=== PATIENT | female | born 1940 | race Caucasian/White ===

== ENCOUNTER → 2023-11-06 08:29 | Outpatient (REF) | payer MEDICARE, SELFPAY ==
[2023-11-06 09:44] LABS: % Basophils 0.4 % (0-2); % Eosinophils 1.5 % (0-6); % Immature Granulocytes 0.3 % (0-0.5); % Lymphocytes 37.1 % (20.5-51.1); % Monocytes 9.1 % (1.7-9.3); % Neutrophils 51.6 % (42.2-75.2); Absolute Eosinophils 0.1 10^3/uL (0-0.7); Absolute Lymphocytes 2.5 10^3/uL (1.2-3.4); Absolute Monocytes 0.6 10^3/uL (0.1-0.6); Absolute Neutrophils 3.5 10^3/uL (1.4-6.5); Hematocrit 40.6 % (37.0-47.0); Hemoglobin 13.9 g/dL (12.0-16.0); Mean Corp Hgb Conc. 34.2 g/dL (33.0-37.0); Mean Corpuscular Hgb 30.4 pg (27.0-31.0); Mean Corpuscular Volume 88.8 fL (81.0-99.0); Nucleated Red Blood Cells % 0 %; Platelet Count 321 10^3/uL (130-400); Red Blood Cell Count 4.57 10^6/uL (4.20-5.40); Red Cell Dist. Width 13.9 % (11.5-14.5); White Blood Cell Count 6.7 10^3/uL (4.8-10.8)
[2023-11-06 09:49] LABS: Urine Albumin Negative (Neg - Trace); Urine Bilirubin Negative (Negative); Urine Character Clear (Clear); Urine Color Yellow; Urine Glucose Negative (Negative); Urine Ketone Negative (Negative); Urine Leukocyte Negative (Negative); Urine Nitrite Negative (Negative); Urine Occult Blood Negative (Negative); Urine Urobilinogen Negative (Neg - 1+)
[2023-11-06 10:46] LABS: ALT (SGPT) 27 U/L (0-35); AST (SGOT) 41 U/L (14-36); Albumin 4.7 g/dl (3.5-5.0); Alkaline Phosphatase 75 U/L (38-126); Blood Urea Nitrogen 22 mg/dl (7-17); Calcium 10.1 mg/dl (8.4-10.2); Carbon Dioxide 27 mmol/L (22-30); Chloride 104 mmol/L (98-107); Glucose 102 mg/dl (70-99); HDL Cholesterol 86 mg/dl; LDL Cholesterol, Calculated 35 mg/dl; Potassium 4.6 mmol/L (3.5-5.1); Sodium 137 mmol/L (135-145); Total Cholesterol 140 mg/dl (50-199); Total Protein 7.5 g/dl (6.3-8.2); Triglyceride 98 mg/dl (10-149); Very Low Density Lipoprotein 19 mg/dl (0-30); Vitamin D, 25-OH*** 85.5 ng/mL (30-80); eGFR > 60.00
[2023-11-06 11:00] LABS: TSH Reflex To Free T4 0.79 uIU/ml (0.47-4.68)
== END ==
LOC: REG 08:29
PROVIDERS: ATTENDING PHYSICIAN Internal Medicine
DX: I25.10 Atherosclerotic heart disease of native coronary artery without angina pectoris (principal); Z95.5 Presence of coronary angioplasty implant and graft; E78.2 Mixed hyperlipidemia; E03.9 Hypothyroidism, unspecified; I34.0 Nonrheumatic mitral (valve) insufficiency; Q21.0 Ventricular septal defect; E05.30 Thyrotoxicosis from ectopic thyroid tissue without thyrotoxic crisis or storm; Z00.00 Encounter for general adult medical examination without abnormal findings; M81.0 Age-related osteoporosis without current pathological fracture
CPT/HCPCS: 36415; 80053; 80061; 81003; 82306; 84443; 85025

== ENCOUNTER 2023-11-28 12:27 | Emergency (ER) | payer OTHER, SELFPAY ==
[2023-11-28 12:35] VITALS: BP 162/75
[2023-11-28 14:37] VITALS: BP 154/69
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
[2023-11-28] MEDS: TYLENOL 650 MG PO (16:45)
[2023-11-28 16:46] VITALS: BP 151/74
[2023-11-28 17:00] VITALS: BP 151/74
== END 2023-11-28 17:01 | disposition home or self-care (01) ==
LOC: EMR 12:27
PROVIDERS: EMERGENCY PHYSICIAN Emergency Medicine; FAMILY PHYSICIAN Internal Medicine
DX: M54.2 Cervicalgia (principal); V89.2XXA Person injured in unspecified motor-vehicle accident, traffic, initial encounter; R03.0 Elevated blood-pressure reading, without diagnosis of hypertension
CPT/HCPCS: 99284; 70450; 72125

== ENCOUNTER → 2023-12-23 09:14 | Outpatient (REF) | payer OTHER, SELFPAY ==
[2023-12-23 12:27] LABS: ALT (SGPT) 26 U/L (0-35); AST (SGOT) 41 U/L (14-36)
== END ==
LOC: REG 09:14
PROVIDERS: ATTENDING PHYSICIAN Internal Medicine
DX: K76.89 Other specified diseases of liver (principal)
CPT/HCPCS: 36415; 84450; 84460

== ENCOUNTER → 2024-01-14 07:42 | Outpatient (REF) | payer MEDICARE, SELFPAY | LOC: RAD 07:42 | PROVIDERS: ATTENDING PHYSICIAN Internal Medicine; REFERRING PHYSICIAN Internal Medicine Cardiovascular Disease | DX: R79.89 Other specified abnormal findings of blood chemistry (principal) | CPT/HCPCS: 76700 ==

== ENCOUNTER → 2024-03-10 08:23 | Outpatient (REF) | payer MEDICARE, SELFPAY | LOC: RAD 08:23 | PROVIDERS: ATTENDING PHYSICIAN Internal Medicine | DX: M54.50 Low back pain, unspecified (principal); R29.898 Other symptoms and signs involving the musculoskeletal system | CPT/HCPCS: 72110; 73502 ==

== ENCOUNTER → 2024-05-18 08:21 | Outpatient (REF) | payer MEDICARE, SELFPAY ==
[2024-05-18 10:46] LABS: ALT (SGPT) 28 U/L (0-35); AST (SGOT) 41 U/L (14-36); Albumin 4.6 g/dl (3.5-5.0); Alkaline Phosphatase 50 U/L (38-126); Direct Bilirubin 0.1 mg/dl (0.0-0.4); Total Bilirubin 0.8 mg/dl (0.2-1.3); Total Protein 7.1 g/dl (6.3-8.2)
== END ==
LOC: RAD 08:21
PROVIDERS: ATTENDING PHYSICIAN Internal Medicine
DX: R79.89 Other specified abnormal findings of blood chemistry (principal); K76.0 Fatty (change of) liver, not elsewhere classified
CPT/HCPCS: 36415; 76700; 80076

== ENCOUNTER → 2024-08-27 08:54 | Outpatient (REF) | payer MEDICARE, SELFPAY | LOC: RCS 08:54 | PROVIDERS: ATTENDING PHYSICIAN Internal Medicine Cardiovascular Disease; FAMILY PHYSICIAN Internal Medicine | DX: Q21.0 Ventricular septal defect (principal); R07.89 Other chest pain | CPT/HCPCS: 93306 ==

== ENCOUNTER 2024-09-14 06:57 | Emergency (ER) | payer MEDICARE, SELFPAY ==
[2024-09-14 07:04] VITALS: BP 136/66
--- NOTE | 2024-09-14 07:14 | ED.GENMED ---
History of Present Illness
General
Chief Complaint: Chest Pain
Time Seen by Provider: 09/14/24 07:14
History of Present Illness
History of Present Illness:
TIME OF INITIAL ENCOUNTER: 7:15 AM
HPI: H/o coronary stent 2019 ([place]). Metoprolol stopped recently due to vertigo. Known to Soni. At around 1:30 AM today, she developed chest tightness. She has had chest tightness in the past. The chest tightness is usually described along
with a pinching sensation and happens only at nighttime. She has no exertional symptoms. Today, she passed out while going to the bathroom (felt worse while voiding). Chest tightness ongoing for several months (reports normal echo, EKG, Holter).
She states that she feels well-hydrated and drinks several bottles of water daily.
EXAM:
GENERAL: Well appearing in no distress
HEENT: Moist oral mucosa
CARDIOVASCULAR: No murmurs, normal heart rate, regular rhythm, No chest wall tenderness
PULMONARY: No respiratory distress, breath sounds are clear and equal
ABDOMEN: Soft with no peritoneal signs, no tenderness
NEUROLOGIC: Excellent strength all extremities, no coordination deficits
PSYCHIATRIC: Appropriate mental status, normal insight and judgement
EXTREMITIES: Nontender, no edema, moves all extremities equally, excellent active range of motion at the left knee
SKIN: Abrasion and ecchymosis noted to the anterior aspect of the left knee
NUMBER AND COMPLEXITY OF PROBLEMS ADDRESSED AT THE ENCOUNTER
� Chronic conditions affecting care: CAD, high blood pressure, hyperlipidemia
� Acute Exacerbation and/or Progression of Chronic Illness: This is an acute but recurring problem
� Differential Diagnosis includes: Micturition syncope, dehydration, ACS less likely
AMOUNT AND/OR COMPLEXITY OF DATA TO BE REVIEWED AND ANALYZED
� I performed an independent evaluation of and my interpretation is:
EKG: Sinus 67, normal axis, no acute ST abnormality so very
CT:
X-rays:
Laboratory Studies: CBC normal, chemistries unremarkable, troponin less than 0.012
Other:
� Review of other/old records: Echo from 08/27/2024 showed EF of 65 to 70% with no regional wall motion abnormalities, moderate to severe tricuspid regurg, small perimembranous VSD
� Clinical information was obtained by an independent historian: I spoke to daughter at bedside
� Prescriptions/Medications Considered but not given:
� Further testing considered but not performed:
RISK OF COMPLICATIONS AND/OR MORBIDITY OR MORTALITY OF PATIENT MANAGEMENT
� Social determinants of health affecting care: Lives at home
� Discussion with other providers:
� Escalation of care including admission/observation vs risk of discharge considered: The patient had an event earlier today consistent with micturition syncope. She states she feels well-hydrated. EKG is normal. She had a
pinching chest tightness at 1:30 AM today. The chest tightness has been ongoing for months and was evaluated by Dr. Soni. She also has an upcoming appointment in about a week with Dr. Soni again.
ANY OTHER UPDATES:
8:55 AM: Repeat EKG obtained sinus 55, normal axis, no acute ST abnormality�obtained because she does have some additional chest discomfort in the emergency department. The patient has had some intermittent chest discomfort but this is also ongoing
for months. Recommend close follow-up with Dr. Soni.
Phy Exam
Physical Exam
Physical Exam:
See HPI
Scores
Heart Score for Chest Pain Patients
STEMI patient?: Not applicable
Course
Orders/Labs/Results
Orders:
Orders
09/14/24 06:58
Electrocardiogram (*1) Urgent
Reason for Study: Chest Pain
EKG- Treatment ONCE
09/14/24 07:58
Complete Blood Count/With Diff Urgent
Comprehensive Metabolic Panel Urgent
Free T4 Urgent
TSH Reflex To Free T4 Urgent
Comment: ADD ON
Troponin I Urgent
09/14/24 08:04
Add On- LAB Urgent
Tests Added?: tsh reflex fT4
09/14/24 08:43
ECG [Electrocardiogram (*1)] Urgent
Reason for Study: Chest Pain
EKG- Treatment ONCE
09/14/24 10:34
Troponin I Urgent
Abnormal Lab Results
09/14/24
07:58
Absolute Monos (auto) 0.8 H 10^3/uL
(0.1-0.6)
Glucose 120 H mg/dl
(70-99)
AST 42 H U/L
(14-36)
TSH (Reflex) 0.37 L uIU/ml
(0.47-4.68)
09/14/24 07:58
09/14/24 07:58
Vital Signs
Initial and Last Documented VS:
Initial Vital Signs
Temp Pulse Resp BP Pulse Ox
36.5 C 57 16 136/66 100
09/14/24 07:04 09/14/24 07:04 09/14/24 07:04 09/14/24 07:04 09/14/24 07:04
Last Documented Vital Signs
Temp Pulse Resp BP Pulse Ox
36.5 C 63 18 138/93 96
09/14/24 07:04 09/14/24 10:45 09/14/24 10:45 09/14/24 10:41 09/14/24 10:45
*Critical Care Note
Total Time (30-74mins, 75-104mins- exclusive of procedures): Not Applicable
ED Attending Note
-
Portions of this chart may have been created with voice recognition software.� Occasional wrong word or��sound alike� substitutions may have occurred due to the inherent limitations of voice recognition software.
Discharge Plan
Departure
Patient Disposition: Home (Routine Discharge)
Date of Disposition: 09/14/24
Time of Disposition: 11:24
Patient with high blood pressure during this ER visit?: Yes
Discharge Problem:
Chest pain
Instructions: Chest Pain CBC Follow Up, BLOOD PRESSURE
Referrals:
Domenico Dimas MD [Family Provider] -
Activity Restrictions/Additional Instructions:
2 cardiac blood test called troponins have both been negative. EKG is unremarkable. Basic blood work including thyroid testing is unremarkable. Follow-up with Dr. Soni's group.
Interventions
Interventions:
*Risk Screen - Suicide Last Done: 09/14/24 07:04
*Neglect/Abuse Screening Last Done: 09/14/24 07:04
ED- Fall Risk Assessment Last Done: 09/14/24 08:16
*Nursing Disposition Last Done: 09/14/24 11:49
ED- Cardiac Assessment Last Done: 09/14/24 08:16
Discharge Date and Time
Print Language: SYRIAN
[2024-09-14 07:43] VITALS: BP 149/71
[2024-09-14 08:00] VITALS: BP 149/75
[2024-09-14 08:04] LABS: % Basophils 0.2 % (0-2); % Eosinophils 0.8 % (0-6); % Immature Granulocytes 0.2 % (0-0.5); % Lymphocytes 24.3 % (20.5-51.1); % Neutrophils 65.5 % (42.2-75.2); Absolute Eosinophils 0.1 10^3/uL (0-0.7); Absolute Monocytes 0.8 10^3/uL (0.1-0.6); Absolute Neutrophils 5.5 10^3/uL (1.4-6.5); Hematocrit 38.7 % (37.0-47.0); Hemoglobin 13.2 g/dL (12.0-16.0); Mean Corp Hgb Conc. 34.1 g/dL (33.0-37.0); Mean Corpuscular Hgb 30.1 pg (27.0-31.0); Mean Corpuscular Volume 88.2 fL (81.0-99.0); Mean Platelet Volume 9.2 fL (7.4-10.4); Nucleated Red Blood Cells % 0 %; Platelet Count 336 10^3/uL (130-400); Red Blood Cell Count 4.39 10^6/uL (4.20-5.40); Red Cell Dist. Width 13.5 % (11.5-14.5); White Blood Cell Count 8.4 10^3/uL (4.8-10.8)
[2024-09-14 08:28] LABS: ALT (SGPT) 34 U/L (0-35); AST (SGOT) 42 U/L (14-36); Albumin 4.7 g/dl (3.5-5.0); Alkaline Phosphatase 65 U/L (38-126); Blood Urea Nitrogen 16 mg/dl (7-17); Calcium 10.1 mg/dl (8.4-10.2); Carbon Dioxide 28 mmol/L (22-30); Chloride 104 mmol/L (98-107); Glucose 120 mg/dl (70-99); Potassium 4.3 mmol/L (3.5-5.1); Sodium 140 mmol/L (135-145); Total Bilirubin 1.3 mg/dl (0.2-1.3); Total Protein 7.2 g/dl (6.3-8.2); eGFR > 60.00
[2024-09-14 08:39] LABS: Troponin I < 0.012 ng/ml
[2024-09-14 09:00] VITALS: BP 162/80
[2024-09-14 09:06] LABS: TSH Reflex To Free T4 0.37 uIU/ml (0.47-4.68)
[2024-09-14 10:33] LABS: Free T4 1.11 ng/dl (0.78-2.19)
[2024-09-14 10:41] VITALS: BP 138/93
[2024-09-14 11:10] LABS: Troponin I < 0.012 ng/ml
== END 2024-09-14 12:57 | disposition home or self-care (01) ==
LOC: EMR 06:57
PROVIDERS: EMERGENCY PHYSICIAN Emergency Medicine; FAMILY PHYSICIAN Internal Medicine
DX: R07.89 Other chest pain (principal); Z95.5 Presence of coronary angioplasty implant and graft
CPT/HCPCS: 99284; 80053; 84439; 84443; 84484; 85025; 93005

== ENCOUNTER → 2024-12-15 08:39 | Outpatient (REF) | payer MEDICARE, SELFPAY ==
[2024-12-15 09:07] LABS: % Basophils 0.3 % (0-2); % Eosinophils 1.3 % (0-6); % Immature Granulocytes 0.3 % (0-0.5); % Lymphocytes 36.7 % (20.5-51.1); % Monocytes 8.9 % (1.7-9.3); % Neutrophils 52.5 % (42.2-75.2); Absolute Eosinophils 0.1 10^3/uL (0-0.7); Absolute Lymphocytes 2.9 10^3/uL (1.2-3.4); Absolute Monocytes 0.7 10^3/uL (0.1-0.6); Absolute Neutrophils 4.1 10^3/uL (1.4-6.5); Hematocrit 39.6 % (37.0-47.0); Hemoglobin 13.7 g/dL (12.0-16.0); Mean Corp Hgb Conc. 34.6 g/dL (33.0-37.0); Mean Corpuscular Hgb 30.5 pg (27.0-31.0); Mean Corpuscular Volume 88.2 fL (81.0-99.0); Mean Platelet Volume 9.8 fL (7.4-10.4); Nucleated Red Blood Cells % 0 %; Platelet Count 300 10^3/uL (130-400); Red Blood Cell Count 4.49 10^6/uL (4.20-5.40); Red Cell Dist. Width 13.7 % (11.5-14.5); White Blood Cell Count 7.8 10^3/uL (4.8-10.8)
[2024-12-15 10:07] LABS: TSH < 0.02 uIU/ml (0.47-4.68)
[2024-12-15 10:24] LABS: ALT (SGPT) 26 U/L (0-35); AST (SGOT) 35 U/L (14-36); Albumin 4.9 g/dl (3.5-5.0); Alkaline Phosphatase 61 U/L (38-126); Blood Urea Nitrogen 28 mg/dl (7-17); Calcium 10.1 mg/dl (8.4-10.2); Carbon Dioxide 26 mmol/L (22-30); Chloride 105 mmol/L (98-107); Glucose 97 mg/dl (70-99); HDL Cholesterol 80 mg/dl; LDL Cholesterol, Calculated 42 mg/dl; Potassium 4.3 mmol/L (3.5-5.1); Sodium 139 mmol/L (135-145); Total Bilirubin 0.9 mg/dl (0.2-1.3); Total Cholesterol 139 mg/dl (50-199); Total Protein 7.6 g/dl (6.3-8.2); Triglyceride 88 mg/dl (10-149); Very Low Density Lipoprotein 17 mg/dl (0-30); eGFR > 60.00
== END ==
LOC: REG 08:39
PROVIDERS: ATTENDING PHYSICIAN Internal Medicine; FAMILY PHYSICIAN Internal Medicine
DX: I25.10 Atherosclerotic heart disease of native coronary artery without angina pectoris (principal); E78.2 Mixed hyperlipidemia; E03.9 Hypothyroidism, unspecified; Z00.00 Encounter for general adult medical examination without abnormal findings
CPT/HCPCS: 36415; 80053; 80061; 84443; 85025

== ENCOUNTER → 2025-02-02 08:06 | Outpatient (REF) | payer MEDICARE, SELFPAY ==
[2025-02-02 11:03] LABS: TSH 0.27 uIU/ml (0.47-4.68)
== END ==
LOC: REG 08:06
PROVIDERS: ATTENDING PHYSICIAN Internal Medicine; FAMILY PHYSICIAN Internal Medicine
DX: E03.9 Hypothyroidism, unspecified (principal)
CPT/HCPCS: 36415; 84443

== ENCOUNTER → 2025-03-25 09:27 | Outpatient (REF) | payer MEDICARE, SELFPAY ==
[2025-03-25 11:42] LABS: TSH 6.67 uIU/ml (0.47-4.68)
== END ==
LOC: REG 09:27
PROVIDERS: ATTENDING PHYSICIAN Internal Medicine
DX: E03.9 Hypothyroidism, unspecified (principal)
CPT/HCPCS: 36415; 84443

== ENCOUNTER → 2025-05-31 11:45 | Outpatient (REF) | payer MEDICARE, SELFPAY ==
[2025-05-31 13:21] LABS: Hematocrit 39.4 % (37.0-47.0); Hemoglobin 13.5 g/dL (12.0-16.0); Mean Corp Hgb Conc. 34.3 g/dL (33.0-37.0); Mean Corpuscular Volume 89.7 fL (81.0-99.0); Nucleated Red Blood Cells % 0 %; Platelet Count 314 10^3/uL (130-400); Red Cell Dist. Width 14.1 % (11.5-14.5)
[2025-05-31 14:51] LABS: ALT (SGPT) 23 U/L (0-35); AST (SGOT) 38 U/L (14-36); Albumin 4.8 g/dl (3.5-5.0); Alkaline Phosphatase 67 U/L (38-126); Blood Urea Nitrogen 21 mg/dl (7-17); Calcium 10.3 mg/dl (8.4-10.2); Carbon Dioxide 29 mmol/L (22-30); Chloride 98 mmol/L (98-107); Glucose 85 mg/dl (70-99); Magnesium 2.2 mg/dl (1.6-2.3); Potassium 4.1 mmol/L (3.5-5.1); Sodium 134 mmol/L (135-145); Total Protein 7.9 g/dl (6.3-8.2); eGFR 55.55
[2025-05-31 15:04] LABS: Vitamin D, 25-OH*** 79.1 ng/mL (30-80)
== END ==
LOC: REG 11:45
PROVIDERS: ATTENDING PHYSICIAN Internal Medicine; FAMILY PHYSICIAN Internal Medicine
DX: M81.0 Age-related osteoporosis without current pathological fracture (principal); E55.9 Vitamin D deficiency, unspecified; E34.9 Endocrine disorder, unspecified; K90.0 Celiac disease; E07.9 Disorder of thyroid, unspecified; D47.2 Monoclonal gammopathy; E61.2 Magnesium deficiency; E83.30 Disorder of phosphorus metabolism, unspecified; E21.5 Disorder of parathyroid gland, unspecified; E03.9 Hypothyroidism, unspecified
CPT/HCPCS: 36415; 80053; 82306; 83735; 84443; 85025